=== PATIENT | male | born 1985 | race Caucasian/White ===

== ENCOUNTER 2023-03-07 10:14 | Emergency (ER) | payer OTHER, SELFPAY ==
[2023-03-07 10:30] VITALS: BP 122/88; PULSE 76; RESP 16; TEMP 37; O2SAT 100
--- NOTE | 2023-03-07 10:40 | ED.EAR ---
HPI - Ear Problem General Chief complaint: Ear Stated complaint: Ears Irritation Time Seen by Provider: 03/07/23 10:36 Source: patient and RN notes reviewed Mode of arrival: ambulatory Limitations: no limitations History of Present Illness HPI Narrative: 37-year-old male who is positive for COVID presents with concern for bilateral ear pain. He reports he has been taking an expectorant and ibuprofen without relief. MD Complaint: ear pain Related Data Allergies Allergy/AdvReac Type Severity Reaction Status Date / Time No Known Allergies Allergy Unknown Verified 03/07/23 10:30 Review of Systems Review of Systems: CONSTITUTIONAL: Denies malaise, chills, sweats, or fever. EYES: Denies visual changes, redness, or discharge. ENT: Reports rhinorrhea, congestion. Reports bilateral ear pain CARDIOVASCULAR: Denies chest pain, palpitations, or edema. RESPIRATORY: Denies cough. Denies dyspnea. GASTROINTESTINAL: Denies abdominal pain, nausea, vomiting, diarrhea SKIN: Denies rash or itching. MUSCULOSKELETAL: Denies myalgia. NEUROLOGIC: Denies headache. 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 There is no relevant family history pertinent to the presenting complaint Exam Narrative: GENERAL: Well-appearing, well-nourished, and in no acute distress. HEAD: Normocephalic EYES: PERRLA, conjunctivae clear ENT: Nares clear, turbinates edematous, clear discharge. Mucous membranes moist. TM erythematous and bulging bilaterally; no tragal tenderness. Oropharynx not erythematous without lesions. Tonsils not enlarged and without exudate, no drooling, no hoarseness, no trismus, uvula midline. NECK: Supple. No lymphadenopathy CHEST: Clear to auscultation, breath sounds equal. No wheezing, rhonchi, rales, or stridor. No respiratory distress, speaks in full sentences. HEART: Regular rate and rhythm. No murmur heard. SKIN: Warm, dry, no rash. NEURO: Alert and oriented x3. PSYCH: Normal mood and affect Course Course Emergency Course: Patient is aware of diagnosis, understands and agrees to treatment plan. Anticipatory guidance given. Patient agrees to follow-up as directed and is aware of reasons to seek care at the emergency department. Portions of this record may have been created with voice recognition software Level of Care: Express Care Visit Vital Signs Vital signs: Vital Signs Temperature 98.6 F 03/07/23 10:30 Pulse Rate 76 03/07/23 10:30 Respiratory Rate 16 03/07/23 10:30 Blood Pressure 122/88 03/07/23 10:30 Pulse Oximetry 100 03/07/23 10:30 Oxygen Delivery Room Air 03/07/23 10:30 Temperature 98.6 F 03/07/23 10:30 Pulse Rate 76 03/07/23 10:30 Respiratory Rate 16 03/07/23 10:30 Blood Pressure 122/88 03/07/23 10:30 Pulse Oximetry 100 03/07/23 10:30 Oxygen Delivery Room Air 03/07/23 10:30 Reviewed. Medical Decision Making MDM Narrative Medical decision making narrative: Differential diagnosis considered: Dave virus, strep pharyngitis, allergic rhinitis, upper re
== END 2023-03-07 10:49 | disposition home or self-care (01) ==
PROVIDERS: Emergency Provider Nurse Practitioner; PCP Family Medicine
DX: H66.93 Otitis media, unspecified, bilateral (principal); N40.0 Benign prostatic hyperplasia without lower urinary tract symptoms
CPT/HCPCS: 99213; G0463